=== PATIENT | female | born 1950 | race American Indian/Alaskan Native ===

== ENCOUNTER → 2018-10-31 16:34 | Outpatient (CLI) | payer BC | END | disposition home or self-care (01) | LOC: D.LABREF 16:34 | DX: M17.11 Unilateral primary osteoarthritis, right knee (principal); Z11.8 Encounter for screening for other infectious and parasitic diseases ==

== ENCOUNTER 2018-11-07 10:00 | Inpatient (IN) | payer BC ==
[~2018-11-07] VITALS: Ht 152.4 cm; Wt 81.6 kg
--- NOTE | ~2018-11-07 | MORECARE ---
CASE MANAGEMENT DISCHARGE SUMMARY PATIENT: TEMITOPE TRAN UNIT: [id number] ADM DATE: 11/15/18 AGE: 68 : 52 SEX: F ROOM/BED: D.2235 AUTHOR: SHREYAS,DOC PHYSICIAN: REFERRING PHYSICIAN: CARRIE DEE MD DATE OF SERVICE: 11/19/18 Discharge Plan Patient Name: TEMITOPE TRAN Facility: [facility]:[place] : 1950 Planned Disposition: Home Anticipated Discharge Date: Discharge Date: Expected LOS: Initial Reviewer: [email or web address] Initial Review Date: 11/16/2018 Generated: 11/19/18 10:23 am Comments DCP- Discharge Planning Updated by [email or web address]: Celeste Cai on 11/19/18 8:[address] Received order for discharge. I spoke with Zo at [facility] and she states she will have them bring her equipment to the hospital as requested. States "they are headed this way." She also has OP PT set up with [facility] on November [address] Dee here and states ok for therapy to start November 28. Family is here to take her home. CM will continue to follow and assist with discharge planning/needs. DCP- Discharge Planning Updated by [email or web address]: Celeste Cai on 11/16/18 1:[address] I called Kate with [facility] and she reports that she got the fax and order for patient to get her therapy starting November 28. CM will continue to follow and assist with discharge planning/needs DCP- Discharge Planning Updated by [email or web address]: Celeste Cai on 11/16/18 10:[address] I faxed order and face sheet to [facility] in [place]. Her first visit is November 28 at 8am. I gave patient a copy of the order with the therapy phone number. CM will continue to follow and assist with discharge planning/needs. DCP- Discharge Planning Updated by [email or web address]: Celeste Cai on 11/16/18 10:[address] Patient Name: TEMITOPE TRAN Admission Status: Elective Accout number: [id number] Admission Date: 11-15-2018 : 1950 Admission Diagnosis: Attending: CARRIE DEE Current LOS: 1 Anticipated DC Date: Planned Disposition: Home Primary Insurance: [employer] OUT OF STATE Discharge Planning Comments: CM met with patient to discuss discharge planning, she is alone in the room. She lives with her . She states she is independent with all ADL's and IADL's. States she is still working. States her only DME is a cane. I called Zo at [facility] and they have a BSC, walker and a CPM machine ordered per Dr. Jaeger office that they will deliver on discharge. States someone will be control technician on the weekend for deliveries. Patient states she does not need home health, she would like to have outpatient PT in [place], she has used [facility] before. I called and spoke to Kate at [facility] and the first opening is November 28 at 0800, order and clinical faxed to them. CM will continue to follow and assist with discharge planning/needs. [facility] P: [phone] F: [phone] Asp Net Developer: Celeste Cai DCPIA - Discharge Planning Initial Assessment Updated by [email or web address]: Celeste Cai on 11/16/18 10:59 am * Is the patient Alert and Oriented? Yes * How many steps to enter\\exit or inside your home? 1/0 * PCP Dr. Capps * Pharmacy [facility] in [facility] * Preadmission Environment Home with Family * ADLs Independent * Equipment Cane * List name and contact numbers for known caregivers / representatives who currently or will assist patient after discharge: Christa Tran - spouse - [phone] * Verbal permission to speak to the caregivers and representatives has been obtained from the patient. Yes * Community resources currently utilized None * Additional services required to return to the preadmission environment? Yes * Can the patient safely return to the preadmission environment? Yes * Has this patient been hospitalized within the prior 30 days at any hospital? No Last DP export: 11/16/18 1:11 Patient Name: TEMITOPE TRAN Page 24910 at 0923 All edits/amendments must be made on the electronic document DICTATION DATE: 11/19/18921 BLOW MOLD TECHNICIAN: DM 11/19/18921 RPT#: [id number] DC DATE: STATUS: ADM IN [facility] [address] [place] [address] END OF REPORT
--- NOTE | ~2018-11-07 | MORECARE ---
CASE MANAGEMENT DISCHARGE SUMMARY PATIENT: TEMITOPE TRAN UNIT: [id number] ADM DATE: 11/15/18 AGE: 68 : 52 SEX: F ROOM/BED: D.2865 AUTHOR: SHREYAS,DOC PHYSICIAN: REFERRING PHYSICIAN: CARRIE DEE MD DATE OF SERVICE: 11/19/18 Discharge Plan Patient Name: TEMITOPE TRAN Facility: [facility]:[place] : 1950 Planned Disposition: Home Anticipated Discharge Date: Discharge Date: 11/19/2018 Expected LOS: 0 Initial Reviewer: [email or web address] Initial Review Date: 11/16/2018 Generated: 11/19/18 3:59 pm Comments DCP- Discharge Planning Updated by [email or web address]: Celeste Cai on 11/19/18 8:[address] Received order for discharge. I spoke with Zo at [facility] and she states she will have them bring her equipment to the hospital as requested. States "they are headed this way." She also has OP PT set up with [facility] on November [address] Dee here and states ok for therapy to start November 28. Family is here to take her home. CM will continue to follow and assist with discharge planning/needs. DCP- Discharge Planning Updated by [email or web address]: Celeste Cai on 11/16/18 1:[address] I called Kate with [facility] and she reports that she got the fax and order for patient to get her therapy starting November 28. CM will continue to follow and assist with discharge planning/needs DCP- Discharge Planning Updated by [email or web address]: Celeste Cai on 11/16/18 10:[address] I faxed order and face sheet to [facility] in [place]. Her first visit is November 28 at 8am. I gave patient a copy of the order with the therapy phone number. CM will continue to follow and assist with discharge planning/needs. DCP- Discharge Planning Updated by [email or web address]: Celeste Cai on 11/16/18 10:[address] Patient Name: TEMITOPE TRAN Admission Status: Elective Accout number: [id number] Admission Date: 11-15-2018 : 1950 Admission Diagnosis: Attending: CARRIE DEE Current LOS: 1 Anticipated DC Date: Planned Disposition: Home Primary Insurance: [employer] OUT OF STATE Discharge Planning Comments: CM met with patient to discuss discharge planning, she is alone in the room. She lives with her . She states she is independent with all ADL's and IADL's. States she is still working. States her only DME is a cane. I called Zo at [facility] and they have a BSC, walker and a CPM machine ordered per Dr. Jaeger office that they will deliver on discharge. States someone will be console attendant on the weekend for deliveries. Patient states she does not need home health, she would like to have outpatient PT in [place], she has used [facility] before. I called and spoke to Kate at [facility] and the first opening is November 28 at 0800, order and clinical faxed to them. CM will continue to follow and assist with discharge planning/needs. [facility] P: [phone] F: [phone] Agricultural Equipment Sales Manager: Celeste Cai DCPIA - Discharge Planning Initial Assessment Updated by [email or web address]: Celeste Cai on 11/16/18 10:59 am * Is the patient Alert and Oriented? Yes * How many steps to enter\\exit or inside your home? 1/0 * PCP Dr. Capps * Pharmacy [facility] in [place] * Preadmission Environment Home with Family * ADLs Independent * Equipment Cane * List name and contact numbers for known caregivers / representatives who currently or will assist patient after discharge: Christa Tran - spouse - [phone] * Verbal permission to speak to the caregivers and representatives has been obtained from the patient. Yes * Community resources currently utilized None * Additional services required to return to the preadmission environment? Yes * Can the patient safely return to the preadmission environment? Yes * Has this patient been hospitalized within the prior 30 days at any hospital? No Last DP export: 11/19/18 8:23 Patient Name: TEMITOPE TRAN Page 02066 at 0383 All edits/amendments must be made on the electronic document DICTATION DATE: 11/19/181457 AUTOMOTIVE WARRANTY ADMINISTRATOR: RASHIDA 11/19/181457 RPT#: [id number] DC DATE:11/19/18 STATUS: DIS IN [facility] [address] [place] [address] END OF REPORT
--- NOTE | ~2018-11-07 | MORECARE ---
CASE MANAGEMENT DISCHARGE SUMMARY PATIENT: TEMITOPE TRAN UNIT: [id number] ADM DATE: 11/15/18 AGE: 68 : 52 SEX: F ROOM/BED: D.2235 AUTHOR: SHREYAS,DOC PHYSICIAN: REFERRING PHYSICIAN: CARRIE DEE MD DATE OF SERVICE: 11/16/18 Discharge Plan Patient Name: TEMITOPE TRAN Facility: [facility]:[place] : 1950 Planned Disposition: Home Anticipated Discharge Date: Discharge Date: Expected LOS: Initial Reviewer: [email or web address] Initial Review Date: 11/16/2018 Generated: 11/16/18 1:27 pm Comments DCP- Discharge Planning Updated by [email or web address]: Celesteluis Cai on 11/16/18 10:[address] I faxed order and face sheet to [facility] in [place]. Her first visit is November 28 at 8am. I gave patient a copy of the order with the therapy phone number. CM will continue to follow and assist with discharge planning/needs. DCP- Discharge Planning Updated by [email or web address]: Celeste Cai on 11/16/18 10:[address] Patient Name: TEMITOPE TRNA Admission Status: Elective Accout number: [id number] Admission Date: 11-15-2018 : 1950 Admission Diagnosis: Attending: CARRIE DEE Current LOS: 1 Anticipated DC Date: Planned Disposition: Home Primary Insurance: [employer] OUT OF STATE Discharge Planning Comments: CM met with patient to discuss discharge planning, she is alone in the room. She lives with her . She states she is independent with all ADL's and IADL's. States she is still working. States her only DME is a cane. I called Zo at [employer] and they have a BSC, walker and a CPM machine ordered per Dr. Jaeger office that they will deliver on discharge. States someone will be low emission automobile designer on the weekend for deliveries. Patient states she does not need home health, she would like to have outpatient PT in [place], she has used [facility] before. I called and spoke to Kate at [facility] and the first opening is November 28 at 0800, order and clinical faxed to them. CM will continue to follow and assist with discharge planning/needs. [facility] P: [phone] F: [phone] Net Fisher: Celeste Cai DCPIA - Discharge Planning Initial Assessment Updated by [email or web address]: Celeste Cai on 11/16/18 10:59 am * Is the patient Alert and Oriented? Yes * How many steps to enter\exit or inside your home? 1/0 * PCP Dr. Capps * Pharmacy [facility] in [facility] * Preadmission Environment Home with Family * ADLs Independent * Equipment Cane * List name and contact numbers for known caregivers / representatives who currently or will assist patient after discharge: Christa Tran - spouse - [phone] * Verbal permission to speak to the caregivers and representatives has been obtained from the patient. Yes * Community resources currently utilized None * Additional services required to return to the preadmission environment? Yes * Can the patient safely return to the preadmission environment? Yes * Has this patient been hospitalized within the prior 30 days at any hospital? No Last DP export: 11/16/18 10:40 Patient Name: TEMITOPE TRAN Page 67442 at 1228 All edits/amendments must be made on the electronic document DICTATION DATE: 11/16/181226 POLITICAL ANTHROPOLOGIST: RASHIDA 11/16/181226 RPT#: [id number] DC DATE: STATUS: ADM IN [facility] [address] [place] [address] END OF REPORT
--- NOTE | ~2018-11-07 | MORECARE ---
CASE MANAGEMENT DISCHARGE SUMMARY PATIENT: TEMITOPE RM UNIT: [id number] ADM DATE: 11/15/18 AGE: 68 : 52 SEX: F ROOM/BED: D.2235 AUTHOR: LUIS PRITCHETT PHYSICIAN: REFERRING PHYSICIAN: CARRIE DEE MD DATE OF SERVICE: 11/16/18 Discharge Plan Patient Name: TEMITOPE RM [facility] [facility] 1950 Planned Disposition: Home Anticipated Discharge Date: Discharge Date: Expected LOS: Initial Reviewer: [email or web address] Initial Review Date: 11/16/2018 Generated: 11/16/18 11:58 am Patient Name: TEMITOPE RM Page 68721 at 1058 All edits/amendments must be made on the electronic document DICTATION DATE: 11/16/18 1058 SOCK KNITTER: RASHIDA 11/16/18 1058 RPT#: [id number] DC DATE: STATUS: ADM IN [facility] [address] [place] [address] END OF REPORT
--- NOTE | ~2018-11-07 | MORECARE ---
CASE MANAGEMENT DISCHARGE SUMMARY PATIENT: TEMITOPE TRAN UNIT: [id number] ADM DATE: 11/15/18 AGE: 68 : 52 SEX: F ROOM/BED: D.2235 AUTHOR: SHREYAS,LUIS PHYSICIAN: REFERRING PHYSICIAN: CARRIE DEE MD DATE OF SERVICE: 11/16/18 Discharge Plan Patient Name: TEMITOPE TRAN Facility: [facility]:[place] : 1950 Planned Disposition: Home Anticipated Discharge Date: Discharge Date: Expected LOS: Initial Reviewer: [email or web address] Initial Review Date: 11/16/2018 Generated: 11/16/18 12:20 pm Comments DCP- Discharge Planning Updated by [email or web address]: Celeste Cai on 11/16/18 10:[address] Patient Name: TEMITOPE TRAN Admission Status: Elective Accout number: [id number] Admission Date: 11-15-2018 : 1950 Admission Diagnosis: Attending: CARRIE DEE Current LOS: 1 Anticipated DC Date: Planned Disposition: Home Primary Insurance: [employer] OUT OF STATE Discharge Planning Comments: CM met with patient to discuss discharge planning, she is alone in the room. She lives with her . She states she is independent with all ADL's and IADL's. States she is still working. States her only DME is a cane. I called Zo at [facility] and they have a BSC, walker and a CPM machine ordered per Dr. Jaeger office that they will deliver on discharge. States someone will be oncology registrar on the weekend for deliveries. Patient states she does not need home health, she would like to have outpatient PT in [place], she has used [facility] before. I called and spoke to Kate at [facility] and the first opening is November 28 at 0800, order and clinical faxed to them. CM will continue to follow and assist with discharge planning/needs. [facility] P: [phone] F: [phone] Folding Rules Printing Machine Operator: Celeste Cai DCPIA - Discharge Planning Initial Assessment Updated by [email or web address]: Celeste Cai on 11/16/18 10:59 am * Is the patient Alert and Oriented? Yes * How many steps to enter\exit or inside your home? 1/0 * PCP Dr. Capps * [facility] * Preadmission Environment Home with Family * ADLs Independent * Equipment Cane * List name and contact numbers for known caregivers / representatives who currently or will assist patient after discharge: Christa Tran - [facility] - [phone] * Verbal permission to speak to the caregivers and representatives has been obtained from the patient. Yes * Community resources currently utilized None * Additional services required to return to the preadmission environment? Yes * Can the patient safely return to the preadmission environment? Yes * Has this patient been hospitalized within the prior 30 days at any hospital? No Last DP export: 11/16/18 10:04 Patient Name: TEMITOPE TRAN Page 42850 at 1120 All edits/amendments must be made on the electronic document DICTATION DATE: 11/16/181118 LEGAL REFEREE: RASHIDA 11/16/181118 RPT#: [id number] DC DATE: STATUS: ADM IN [facility] [address] [place] [address] END OF REPORT
--- NOTE | ~2018-11-07 | MORECARE ---
CASE MANAGEMENT DISCHARGE SUMMARY PATIENT: TEMITOPE TRAN UNIT: [id number] ADM DATE: 11/15/18 AGE: 68 : [birth year] SEX: F ROOM/BED: D.[facility]5 AUTHOR: LUIS PRITCHETT PHYSICIAN: REFERRING PHYSICIAN: CARRIE DEE MD DATE OF SERVICE: 11/16/18 Discharge Plan Patient Name: TEMITOPE TRAN [facility] [facility] 1950 Planned Disposition: Home Anticipated Discharge Date: Discharge Date: Expected LOS: Initial Reviewer: [email or web address] Initial Review Date: 11/16/2018 Generated: 11/16/18 12:04 pm DCPIA - Discharge Planning Initial Assessment Updated by [email or web address]: Celeste Cai on 11/16/18 10:59 am * Is the patient Alert and Oriented? Yes * How many steps to enter\exit or inside your home? 1/0 * PCP Dr. Capps * Pharmacy [facility] in [facility] * Preadmission Environment Home with Family * ADLs Independent * Equipment Cane * List name and contact numbers for known caregivers / representatives who currently or will assist patient after discharge: Christa Tran - spouse - [phone] * Verbal permission to speak to the caregivers and representatives has been obtained from the patient. Yes * Community resources currently utilized None * Additional services required to return to the preadmission environment? Yes * Can the patient safely return to the preadmission environment? Yes * Has this patient been hospitalized within the prior 30 days at any hospital? No Last DP export: 11/16/18 9:58 Patient Name: TEMITOPE TRAN Page 28250 at 1105 All edits/amendments must be made on the electronic document DICTATION DATE: 11/16/181103 LANDSCAPE PAINTER: RASHIDA 11/16/181103 RPT#: [id number] DC DATE: STATUS: ADM IN [facility] [address] [place] [address] END OF REPORT
--- NOTE | ~2018-11-07 | MORECARE ---
CASE MANAGEMENT DISCHARGE SUMMARY PATIENT: TEMITOPE TRAN UNIT: [id number] ADM DATE: 11/15/18 AGE: 68 : 54 SEX: F ROOM/BED: D.2235 AUTHOR: SHREYAS,LUIS PHYSICIAN: REFERRING PHYSICIAN: CARRIE DEE MD DATE OF SERVICE: 11/16/18 Discharge Plan Patient Name: TEMITOPE TRAN Facility: [facility]:[place] : 1950 Planned Disposition: Home Anticipated Discharge Date: Discharge Date: Expected LOS: Initial Reviewer: [email or web address] Initial Review Date: 11/16/2018 Generated: 11/16/18 12:33 pm Comments DCP- Discharge Planning Updated by [email or web address]: Celeste Cai on 11/16/18 10:[address] Patient Name: TEMITOPE TRAN Admission Status: Elective Accout number: [id number] Admission Date: 11-15-2018 : 1950 Admission Diagnosis: Attending: CARRIE DEE Current LOS: 1 Anticipated DC Date: Planned Disposition: Home Primary Insurance: [employer] OUT OF STATE Discharge Planning Comments: CM met with patient to discuss discharge planning, she is alone in the room. She lives with her . She states she is independent with all ADL's and IADL's. States she is still working. States her only DME is a cane. I called Zo at [facility] and they have a BSC, walker and a CPM machine ordered per Dr. Jaeger office that they will deliver on discharge. States someone will be production artist on the weekend for deliveries. Patient states she does not need home health, she would like to have outpatient PT in [place], she has used [facility] before. I called and spoke to Kate at [facility] and the first opening is November 28 at 0800, order and clinical faxed to them. CM will continue to follow and assist with discharge planning/needs. [facility] P: [phone] F: [phone] Industrial Psychology Professor: Celeste Cai DCPIA - Discharge Planning Initial Assessment Updated by [email or web address]: Celeste Cai on 11/16/18 10:59 am * Is the patient Alert and Oriented? Yes * How many steps to enter\exit or inside your home? 1/0 * PCP Dr. Capps * [facility] * Preadmission Environment Home with Family * ADLs Independent * Equipment Cane * List name and contact numbers for known caregivers / representatives who currently or will assist patient after discharge: Christa Tran - [facility] - [phone] * Verbal permission to speak to the caregivers and representatives has been obtained from the patient. Yes * Community resources currently utilized None * Additional services required to return to the preadmission environment? Yes * Can the patient safely return to the preadmission environment? Yes * Has this patient been hospitalized within the prior 30 days at any hospital? No External Providers External Provider: OTHER-OTHER Next Contact Date: Service Request Date: Service Type: Resolution: Reviewer: Comments: Last DP export: 11/16/18 10:20 Patient Name: TEMITOPE TRAN Page 43388 at 1133 All edits/amendments must be made on the electronic document DICTATION DATE: 11/16/18 1132 HOUSEMAID: RASHIDA 11/16/18 1132 RPT#: [id number] DC DATE: STATUS: ADM IN [facility] [address] [place] [address] END OF REPORT
--- NOTE | ~2018-11-07 | MORECARE ---
CASE MANAGEMENT DISCHARGE SUMMARY PATIENT: TEMITOPE TRAN UNIT: [id number] ADM DATE: 11/15/18 AGE: 68 : 54 SEX: F ROOM/BED: D.2235 AUTHOR: SHREYAS,DOC PHYSICIAN: REFERRING PHYSICIAN: CARRIE DEE MD DATE OF SERVICE: 11/16/18 Discharge Plan Patient Name: TEMITOPE TRAN Facility: [facility]:[place] : 1950 Planned Disposition: Home Anticipated Discharge Date: Discharge Date: Expected LOS: Initial Reviewer: [email or web address] Initial Review Date: 11/16/2018 Generated: 11/16/18 3:11 pm Comments DCP- Discharge Planning Updated by [email or web address]: Celeste Cai on 11/16/18 1:[address] I called Kate with [facility] and she reports that she got the fax and order for patient to get her therapy starting November 28. CM will continue to follow and assist with discharge planning/needs DCP- Discharge Planning Updated by [email or web address]: Celeste Cai on 11/16/18 10:[address] I faxed order and face sheet to [facility] in [place]. Her first visit is November 28 at 8am. I gave patient a copy of the order with the therapy phone number. CM will continue to follow and assist with discharge planning/needs. DCP- Discharge Planning Updated by [email or web address]: Celeste Cai on 11/16/18 10:[address] Patient Name: TEMITOPE TRAN Admission Status: Elective Accout number: [id number] Admission Date: 11-15-2018 : 1950 Admission Diagnosis: Attending: CARRIE DEE Current LOS: 1 Anticipated DC Date: Planned Disposition: Home Primary Insurance: General Specific OUT OF STATE Discharge Planning Comments: CM met with patient to discuss discharge planning, she is alone in the room. She lives with her . She states she is independent with all ADL's and IADL's. States she is still working. States her only DME is a cane. I called Zo at [facility] and they have a BSC, walker and a CPM machine ordered per Dr. Jaeger office that they will deliver on discharge. States someone will be avionics safety inspector on the weekend for deliveries. Patient states she does not need home health, she would like to have outpatient PT in [place], she has used [facility] before. I called and spoke to Kate at [facility] and the first opening is November 28 at 0800, order and clinical faxed to them. CM will continue to follow and assist with discharge planning/needs. [facility] P: [phone] F: [phone] Realty Loan Specialist: Celeste Cai DCPIA - Discharge Planning Initial Assessment Updated by [email or web address]: Celeste Cai on 11/16/18 10:59 am * Is the patient Alert and Oriented? Yes * How many steps to enter\exit or inside your home? 1/0 * PCP Dr. Capps * Pharmacy [facility] in [facility] * Preadmission Environment Home with Family * ADLs Independent * Equipment Cane * List name and contact numbers for known caregivers / representatives who currently or will assist patient after discharge: Christa Tran - spouse - [phone] * Verbal permission to speak to the caregivers and representatives has been obtained from the patient. Yes * Community resources currently utilized None * Additional services required to return to the preadmission environment? Yes * Can the patient safely return to the preadmission environment? Yes * Has this patient been hospitalized within the prior 30 days at any hospital? No Last DP export: 11/16/18 11:28 Patient Name: TEMITOPE TRAN Page [id number] at 1411 All edits/amendments must be made on the electronic document DICTATION DATE: 11/16/18 1411 HYDROMETER TESTER: RASHIDA 11/16/181410 RPT#: [id number] DC DATE: STATUS: ADM IN [facility] [address] [place] [address] END OF REPORT
--- NOTE | ~2018-11-07 | MORECARE ---
CASE MANAGEMENT DISCHARGE SUMMARY PATIENT: TEMITOPE TRAN UNIT: [id number] ADM DATE: 11/15/18 AGE: 68 : 54 SEX: F ROOM/BED: D.2235 AUTHOR: SHREYAS,DOC PHYSICIAN: REFERRING PHYSICIAN: CARRIE DEE MD DATE OF SERVICE: 11/16/18 Discharge Plan Patient Name: TEMITOPE TRAN Facility: [facility]:[place] : 1950 Planned Disposition: Home Anticipated Discharge Date: Discharge Date: Expected LOS: Initial Reviewer: [email or web address] Initial Review Date: 11/16/2018 Generated: 11/16/18 12:40 pm Comments DCP- Discharge Planning Updated by [email or web address]: Celeste Trell on 11/16/18 10:[address] I faxed order and face sheet to [facility] in [place]. Her first visit is November 28 at 8am. I gave patient a copy of the order with the therapy phone number. CM will continue to follow and assist with discharge planning/needs. DCP- Discharge Planning Updated by [email or web address]: Celeste Cai on 11/16/18 10:[address] Patient Name: TEMITOPE TRAN Admission Status: Elective Accout number: [id number] Admission Date: 11-15-2018 : 1950 Admission Diagnosis: Attending: CARRIE DEE Current LOS: 1 Anticipated DC Date: Planned Disposition: Home Primary Insurance: [employer] OUT OF STATE Discharge Planning Comments: CM met with patient to discuss discharge planning, she is alone in the room. She lives with her . She states she is independent with all ADL's and IADL's. States she is still working. States her only DME is a cane. I called Zo at [facility] and they have a BSC, walker and a CPM machine ordered per Dr. Jaeger office that they will deliver on discharge. States someone will be court collections officer on the weekend for deliveries. Patient states she does not need home health, she would like to have outpatient PT in [place], she has used [facility] before. I called and spoke to Kate at [facility] and the first opening is November 28 at 0800, order and clinical faxed to them. CM will continue to follow and assist with discharge planning/needs. [facility] P: [phone] F: [phone] Pricing Analyst: Celeste Cai DCPIA - Discharge Planning Initial Assessment Updated by [email or web address]: Celeste Cai on 11/16/18 10:59 am * Is the patient Alert and Oriented? Yes * How many steps to enter\exit or inside your home? 1/0 * PCP Dr. Capps * Pharmacy [facility] in [facility] * Preadmission Environment Home with Family * ADLs Independent * Equipment Cane * List name and contact numbers for known caregivers / representatives who currently or will assist patient after discharge: Christa Tran - spouse - [phone] * Verbal permission to speak to the caregivers and representatives has been obtained from the patient. Yes * Community resources currently utilized None * Additional services required to return to the preadmission environment? Yes * Can the patient safely return to the preadmission environment? Yes * Has this patient been hospitalized within the prior 30 days at any hospital? No Last DP export: 11/16/18 10:33 Patient Name: TEMITOPE TRAN Page [id number] at 1140 All edits/amendments must be made on the electronic document DICTATION DATE: 11/16/18 1140 TEMPLATE FITTER: RASHIDA 11/16/18 1140 RPT#: [id number] DC DATE: STATUS: ADM IN [facility] [address] [place] [address] END OF REPORT
[2018-11-07] MEDS ORDERED: CYMBALTA60 MG PO (11:45)
[2018-11-07] MEDS ORDERED: CENTRUM SILVER1 EAC3 PO (11:46)
[2018-11-07] MEDS ORDERED: POTASSIUM CHLO10 ME1 PO (11:46)
[2018-11-07] MEDS ORDERED: FUROSEMIDE40 MG PO (11:46)
[2018-11-07 12:08] LABS: BASOPHILS 0.2 % (0-2); EOSINOPHILS 2.6 % (0-7); HEMATOCRIT 33.2 % (36.0-48.0); LYMPHOCYTES 30.5 % (15-50); MCH 31.9 pg (26.0-34.0); MCHC 33.1 g/dL (31.0-37.0); MCV 96.2 fL (80.0-100.0); MEAN PLATELET VOLUME 10.3 fL (7.4-10.4); MONOCYTES 10.3 % (2-11); NEUTROPHILS 56.4 % (40-80); PLATELET COUNT 135 10x3/uL (130-400); RBC 3.45 10x6/uL (4.00-5.40); RDW 13.6 % (11.5-14.5); WBC 4.6 10x3/uL (4.8-10.8)
[2018-11-07 12:16] LABS: ANION GAP 14.9 mmol/L (8-16); CALCIUM 8.5 mg/dL (8.5-10.1); CARBON DIOXIDE 24.8 mmol/L (21.0-32.0); POTASSIUM - SERUM 3.7 mmol/L (3.5-5.1)
[2018-11-07 12:25] LABS: APPEARANCE CLEAR (CLEAR); BILIRUBIN NEGATIVE (NEGATIVE); COLOR STRAW (YELLOW); GLUCOSE NEGATIVE (NEGATIVE); KETONE NEGATIVE (NEGATIVE); NITRITE NEGATIVE (NEGATIVE); PROTEIN NEGATIVE (NEGATIVE); SPECIFIC GRAVITY 1.015 (1.005-1.020); UROBILINOGEN NORMAL (NORMAL)
[2018-11-07 12:33] LABS: APTT 24.3 SECONDS (22.8-39.4); INR 1.01 (0.85-1.17); PROTIME 12.8 SECONDS (11.6-15.0)
[2018-11-15] VITALS (10 sets, daily range): BP systolic 103–130; BP diastolic 50–79; BMI 35.2
[2018-11-15] MEDS ORDERED: ZYLOPRIM100 MG PO (08:53)
[2018-11-16 00:43] VITALS: BP 96/63
[2018-11-16 04:00] VITALS: BP 110/55
[2018-11-16 05:55] LABS: HEMATOCRIT 29.4 % (36.0-48.0); HEMOGLOBIN 9.7 g/dL (12-16); MCH 31.6 pg (26.0-34.0); MCV 95.8 fL (80.0-100.0); MEAN PLATELET VOLUME 10.1 fL (7.4-10.4); RBC 3.07 10x6/uL (4.00-5.40); RDW 13.8 % (11.5-14.5); WBC 6.2 10x3/uL (4.8-10.8)
[2018-11-16 08:34] VITALS: BP 110/58
[2018-11-16 12:34] VITALS: BP 98/52
[2018-11-16 13:38] VITALS: Ht 152.4 cm; Wt 81.6 kg
[2018-11-16 16:34] VITALS: BP 125/69
[2018-11-16 21:33] VITALS: BP 97/62
[2018-11-17 01:10] VITALS: BP 114/67
[2018-11-17 04:40] VITALS: BP 103/67
[2018-11-17 06:57] LABS: HEMATOCRIT 27.3 % (36.0-48.0); HEMOGLOBIN 9.3 g/dL (12-16); MCH 32.1 pg (26.0-34.0); MCHC 34.1 g/dL (31.0-37.0); MCV 94.1 fL (80.0-100.0); MEAN PLATELET VOLUME 10.7 fL (7.4-10.4); PLATELET COUNT 93 10x3/uL (130-400); RDW 13.7 % (11.5-14.5); WBC 7.1 10x3/uL (4.8-10.8)
[2018-11-17 07:00] VITALS: BP 107/72
[2018-11-17 07:49] LABS: PLATELET ESTIMATE NORMAL
[2018-11-17 13:14] VITALS: BP 109/62
[2018-11-17 17:06] VITALS: BP 128/61
[2018-11-17 20:42] VITALS: BP 94/68
[2018-11-18 05:14] VITALS: BP 107/66
[2018-11-18 09:04] VITALS: BP 126/72
[2018-11-18 12:30] VITALS: BP 154/74
[2018-11-18 17:15] VITALS: BP 112/70
[2018-11-18 21:14] VITALS: BP 100/63
[2018-11-19 04:19] VITALS: BP 98/54
[2018-11-19] MEDS ORDERED: DILAUDID4 MG PO (09:01)
[2018-11-19] MEDS ORDERED: ELIQUIS2.5 MG PO (09:02)
[2018-11-19 09:23] VITALS: BP 107/61
== END 2018-11-19 11:29 | disposition home or self-care (01) | DRG 470 ==
LOC: D.SDCHOLD 10:00 → D.MS 11-15 15:02 → D.SDCHOLD 11-15 16:15 → D.MS 11-19 11:29
PROVIDERS: Orthopaedic Surgery
PROC: 0SRC0JZ Replacement of Right Knee Joint with Synthetic Substitute, Open Approach (ICD-10-PCS; principal; 2018-11-15 11:45)
DX: M17.11 Unilateral primary osteoarthritis, right knee (principal); I10 Essential (primary) hypertension; Z85.72 Personal history of non-Hodgkin lymphomas

== ENCOUNTER 2019-10-14 09:10 | Day surgery (SDC) | payer BC ==
[~2019-10-14] VITALS: Ht 152.4 cm; Wt 81.6 kg
[~2019-10-14 09:10] MED LIST: CENTRUM SILVER1 EAC3 PO; CYMBALTA60 MG PO; DILAUDID4 MG PO; ELIQUIS2.5 MG PO; FUROSEMIDE40 MG PO; POTASSIUM CHLO10 ME1 PO; ZYLOPRIM100 MG PO
[2019-10-14 09:28] LABS: APTT 26.2 SECONDS (22.8-39.4); INR 1.06 (0.85-1.17); PROTIME 13.3 SECONDS (11.6-15.0)
[2019-10-14 09:35] LABS: HEMATOCRIT 39.1 % (36.0-48.0); HEMOGLOBIN 13.1 g/dL (12-16); MCH 32.1 pg (26.0-34.0); MCHC 33.5 g/dL (31.0-37.0); MCV 95.8 fL (80.0-100.0); MEAN PLATELET VOLUME 9.9 fL (7.4-10.4); RBC 4.08 10x6/uL (4.00-5.40); RDW 13.1 % (11.5-14.5); WBC 5.3 10x3/uL (4.8-10.8)
[2019-10-14] MEDS ORDERED: FUROSEMIDE20 MG PO (09:37)
[2019-10-14 09:38] VITALS: BP 120/74; Ht 152.4 cm; Wt 81.6 kg
--- NOTE | 2019-10-15 15:11 | OP ---
PATIENT NAME: TEMITOPE RM MEDICAL RECORD: [id number] :[birth year] LOCATION:[facility] ADMISSION DATE: SURGEON: CARRIE DEE MD DATE OF OPERATION: 10/14/2019 PREOPERATIVE DIAGNOSIS: Arthritis of the right hip. POSTOPERATIVE DIAGNOSIS: Arthritis of the right hip. PROCEDURE: Right hip injection under fluoroscopy. SURGEON: Carrie Dee MD ANESTHESIA: TIVA. INTRAOPERATIVE COMPLICATIONS: None. SUMMARY OF PATHOLOGIC FINDINGS: Fluoroscopy did reveal the patient had osteoarthritis of the hip, [id number], consistent with preoperative diagnosis. INDICATIONS: Ms. Rm is a 69-year-old female who was trying to hold-off on total hip arthroplasty while she can continue to try and attempt to lose weight. OPERATIVE SUMMARY IN DETAIL: After obtaining the appropriate preoperative orthopedic surgery consent as well as anesthetic consultation, evaluation, and clearance, the patient was brought to the operating room and placed on the operating table in supine position. After adequate general TIVA anesthesia was administered, the patient's right hip was prepped and draped in routine sterile fashion. Fluoroscopy was brought in under direct fluoroscopic guidance. An 18-gauge spinal needle was directed into the hip capsule. Small amount of Isovue was utilized to be sure that the needle was in the appropriate location. At this point, 8 cc of Marcaine with epinephrine and 80 mg of Depo-Medrol were injected into the hip with little degree of difficulty. Needle tip was withdrawn. Sterile bandage was applied. The patient was then awakened and taken back to outpatient in stable condition. All final needle and sponge counts were correct. TRANSINT:[id number] Voice Confirmation ID: [id number] DOCUMENT ID: [id number] CARRIE DEE MD at 1511 CC: [id number] DICTATION DATE: 10/14/19 1059 PLUG WIRER: 10/14/19 1122 DEP [facility] 10/14/19 [id number] [place] [address]
== END 2019-10-14 12:00 | disposition home or self-care (01) ==
LOC: D.OPS 09:10 → D.PAN 10:30 → D.OPS 12:00 → D.PAN 13:15 → D.OPS 13:15
PROVIDERS: Anesthesiology; ATTEND Orthopaedic Surgery
DX: M16.11 Unilateral primary osteoarthritis, right hip (principal); M25.561 Pain in right knee; Z96.651 Presence of right artificial knee joint; M25.551 Pain in right hip